=== PATIENT | male | born 1940 | race Caucasian/White ===

== ENCOUNTER 2016-06-26 17:52 | Emergency (ER) | payer OTHER ==
--- NOTE | 2016-06-26 20:23 | ED ORDER SUMMARY ---
..... Patient: ANTHONY IBARRA OrderSheet [facility] VisitID: [id number] [place] [address] 75y, M Registration Date/Time: 06/26/2016 ORDER SHEET Weight: 112.9 kg (stated) Allergies: No Known Drug Allergy GENERAL ORDERS: UA-Culture if indicated Urgent (18:08 06/26/2016 [facility] DO) (Ack 18:09 LNations ER Tech1) (18:35 EHassan R.N.) Amylase Urgent (18:08 06/[facility]/2016 [facility] (Ack 18:09 LNations ER Tech1) (18:35 EHassan R.N.) Lipase Urgent (18:06/26/2016 [facility]) (Ack 18:09 LNations ER Tech1) (18:35 EHassan R.N.) Cardiac Panel Stat (18:08 06/26/2016 [facility]) (Ack 18:10 LNations ER Tech1) (18:35 EHassan R.N.) BNP Urgent (18:08 06/26/2016 [facility]) (Ack 18:10 LNations ER Tech1) (18:35 EHassan R.N.) Urine Drug Screen Urgent (18:08 06/26/2016 [facility]) (Ack 18:10 LNations ER Tech1) (18:35 EHassan R.N.) NPO (18:08 06/26/2016 [facility] DO) (Ack 18:09 LNations ER Tech1) (18:35 EHassan R.N.) CT Abd/Pel w Cont (No) (N/A) (RLQ) Urgent (18:27 06/26/2016 [facility]) (Ack 18:30 LNations ER Tech1) (19:40 EHassan R.N.) MEDICATION ORDERS: IV FLUIDS: IV NS : initial bolus 250 mL (1000 mL/hr), then 250 mL/hr for X3 (NOW) (18:08 06/26/2016 [facility] DO) (18:39 EHassan R.N.) Zofran IV 4 mg (NOW) (18:08 06/26/2016 [facility] ) (18:39 EHassan R.N.) Dilaudid IV 0.5 mg (HIGH ALERT MEDICATION, NOW) (18:45 06/26/2016 [facility]) (18:47 EHassan R.N.) Dilaudid IV 0.5 mg (HIGH ALERT MEDICATION, NOW) (20:13 06/26/2016 [facility]) (20:16 EHassan R.N.) Zofran IV 4 mg (NOW) (20:13 06/26/2016 [facility]) (20:16 EHassan R.N.) ORDER SHEET NOTES: [Electronically signed by Emile Mathews R.N. (21:06 06/26/2016)] [Electronically signed by Yonatan Lazo DO (23:18 06/26/2016)] [Electronically locked/signed by Emile Mathews R.N. (21:06 06/26/2016)]
--- NOTE | 2016-06-26 20:23 | ED CLINICAL REPORT ---
Clinical Report - Physicians/Mid Levels [facility] [address] [place] [address] 06/26/2016 17:55 Patient: ANTHONY IBARRA Time Seen: 18:07. Arrived- By private vehicle. Historian- patient. HISTORY OF PRESENT ILLNESS Chief Complaint: ABDOMINAL PAIN. At its maximum, severity described as severe. When seen in the E.D., severity described as moderate. Modifying factors- worsened by movement. Relieved by rest. It is described as "pain". No radiation. It is described as located in the right pelvis and in the pelvic area. This started yesterday and is still present. It was gradual in onset and has been waxing/waning. The patient has had nausea. He has had vomiting. The vomiting has occurred several times. No blood-tinged emesis or frankly bloody emesis. No diarrhea. Similar symptoms previously: ( States he has had prior abdominal pain for years - unclear etiology). Recent medical care: The patient was seen recently in a clinic (yesterday). ( Pt states he was seen yesterday at [facility] for this pain and told to "get right into the ER" if his pain was worsening so he presented to the ED this evening). Seen for similar symptoms. REVIEW OF SYSTEMS No constipation, black stools, hematemesis, difficulty with urination or pain with urination. No urinary frequency, bloody stools, fever, headache or sore throat. No chest pain, difficulty breathing, cough or back pain. The patient has had skin rash consisting of "redness" (in the perineal area for quite some time). All systems otherwise negative, except as recorded above. PAST HISTORY Primary physician ([facility]). Problems: Contusion. Hypotension. Chest Pain. COPD - Chronic Obstructive Pulmonary Disease. Coronary Artery Disease. Myocardial Infarction. Hypertension. Surgeries: Neck Surgery. Medications: Albuterol Sulfate HFA Inhalation. ASA Oral 325 mg, daily. Allergies: No Known Drug Allergy. SOCIAL HISTORY Never smoker. No alcohol use or drug use. Is a local resident. ADDITIONAL NOTES The nursing notes have been reviewed. PHYSICAL EXAM Vital Signs: 06/26/2016 18:14 BP: 126/72. HR: 111. RR: 18. O2 saturation: 95%. Temp: 97.8 F. Pain level now: 12/04. Appearance: Alert. Oriented X3. Patient in mild distress. Eyes: Eyes normal inspection. No scleral icterus or pale conjunctivae. ENT: Pharynx normal. No pharyngeal erythema or tonsillar exudate. The mucous membranes are not dry. Neck: Normal inspection. Neck supple. CVS: Tachycardia. Heart sounds normal. Pulses normal. Respiratory: No respiratory distress. Breath sounds normal. Abdomen: Moderate tenderness in the right lower quadrant. No organomegaly. No mass. Obese. No rebound tenderness or guarding. Back: Normal inspection. No CVA tenderness. Skin: Skin warm and dry. Normal skin color. Normal skin turgor. Extremities: Extremities exhibit normal ROM. No lower extremity edema. Neuro: Oriented X 3. No motor deficit. LABS, X-RAYS, AND EKG Laboratory Tests: UA-Culture if indicated: (RICO: 06/26/2016 18:28) ( [facility] 06/26/2016 18:49) Final results Test Result Flag Units (Reference) URINE COLOR YELLOW URINE APPEARANCE CLEAR URINE GLUCOSE NEGATIVE (NEGATIVE) URINE BILIRUBIN NEGATIVE (NEGATIVE) URINE KETONE NEGATIVE (NEGATIVE) URINE SPECIFIC GRAVITY 1.015 (1.010-1.030) URINE PH 5.5 (5.0-8.0) URINE PROTEIN NEGATIVE (NEGATIVE) URINE UROBILINOGEN 1.0 EU/dL (0.2-1.0) URINE NITRITE NEGATIVE (NEGATIVE) URINE BLOOD NEGATIVE (NEGATIVE) URINE LEUK ESTERASE NEGATIVE (NEGATIVE) URINE RBC NONE SEEN rbc/hpf (0-1) URINE WBC RARE wbc/hpf (0-1) URINE EPITHELIAL CELLS 0-1 EPI/hpf (0-5) URINE BACTERIA NONE SEEN (NONE SEEN) URINE COMMENT CULT NOT INDICATED URINE CULTURES ARE SET-UP BASED ON THE FOLLOWING CRITERIA:POSITIVE NITRITEPOSITIVE LEUKOCYTE ESTERASEGREATER THAN 10 WHITE BLOOD CELLSMODERATE (2+) OR GREATER BACTERIA CBC w Diff: (RICO: 06/26/2016 18:40) ( [facility] 06/26/[facility] 18:54) Final results Test Result Flag Units (Reference) WHITE BLOOD COUNT 6.4 K/uL (4.5-11.5) RED BLOOD COUNT 4.77 M/uL (4.50-5.90) HEMOGLOBIN 14.2 gm/dL (13.5-17.5) HEMATOCRIT 42.6 % (41.0-53.0) MEAN CELL VOLUME 89 fL (80-100) MEAN CORPUSCULAR HGB 30 pg (26-34) MEAN CORPUSCULAR HGB CONC 33 g/dL (31-37) RED CELL DISTRIBUTION WIDTH 13.3 % (11.6-14.8) PLATELET COUNT 219 K/uL (150-400) NEUTROPHIL % 54.8 % (50-75) LYMPH % 34.7 % (25-40) MONO % 8.7 % (3-14) EOSINOPHIL % 1.2 % (0-4) BASOPHIL % 0.6 % (0-2) Urine Drug Screen: (RICO: 06/26/2016 18:28) ( [facility] 06/26/2016 18:52) Final results Test Result Flag Units (Reference) AMPHETAMINE/METHAMPHETAMINE NEGATIVE (NEGATIVE) BARBITURATE NEGATIVE (NEGATIVE) BENZODIAZEPINE NEGATIVE (NEGATIVE) CANNABINOID NEGATIVE (NEGATIVE) COCAINE NEGATIVE (NEGATIVE) ECSTASY NEGATIVE (NEGATIVE) METHADONE NEGATIVE (NEGATIVE) OPIATE NEGATIVE (NEGATIVE) The urine drug screen is a qualitative screening test fordrug overdose and abuse. All screen results should beconsidered as presumptive.Drugs screened for are as follows:BenzodiazepinesCocaineAmphetamines/MetamphetaminesTHC (Tetrahydrocannabinol)OpiatesBarbituratesEcstasyMethadonePositive results are unconfirmed. For confirmation, notifythe lab for the specimen to be sent to the reference lab.All confirmations must be performed by a differentmethodology.The ingestion of natural herbal and plant productscontaining Ephedra/Ephedra metabolites can produce in urineone or more substances capable of cross reacting withamphetamine/methamphetamine immunoassays. These testsprovide a preliminary result only. A more specificalternative chemical method must be used to obtain aconfirmed analytical result. BNP: (RICO: 06/26/2016 18:40) ( [facility] 06/26/2016 19:17) Final results Test Result Flag Units (Reference) B-TYPE NATRIURETIC PEPTIDE 90.4 pg/ml (5-100) Lipase: (RICO: 06/26/2016 18:40) ( [facility] 06/26/[place] 19:11) Final results Test Result Flag Units (Reference) LIPASE 134 U/L (73-393) AMYLASE 44 U/L (25-115) CHEM 13 PANEL: (RICO: 06/26/2016 18:40) ( [facility] 06/26/2016 19:21) Final results Test Result Flag Units (Reference) GLUCOSE 98 mg/dL (70-110) BUN 17 mg/dL (7-18) CREATININE 0.9 mg/dL (0.6-1.3) Estimated GFR >60 mL/min Estimated GFR- >60 mL/min Note: Persistent reduction over 3 months in eGFR<60 mL/min/1.73 m2 defines CKD. Patients with eGFR values>=60 mL/min/1.73 m2 may also have CKD if evidence ofpersistent proteinuria. Additional information may be foundat www.kidney.org. SODIUM 141 mmol/L (136-145) POTASSIUM 3.7 mmol/L (3.5-5.1) CHLORIDE 104 mmol/L (98-107) CARBON DIOXIDE 28 mmol/L (21-32) CALCIUM 8.4 L mg/dL (8.5-10.1) TOTAL PROTEIN 6.7 g/dL (6.4-8.2) ALBUMIN 3.1 L g/dL (3.3-5.0) BILIRUBIN, TOTAL 0.3 mg/dL (0.0-1.0) ALKALINE PHOSPHATASE 92 U/L (46-116) AST (SGOT) 17 U/L (15-37) ALT (SGPT) 16 U/L (12-78) MAGNESIUM 2.0 mg/dL (1.8-2.4) CPK 73 U/L (24-260) TROPONIN I <0.05 ng/mL (0.00-1.5) TROPONIN REFERENCE RANGE:<0.1 NEGATIVE0.1-1.5 INDETERMINANT>1.5 POSITIVE . Pulse Oximetry: 06/26/2016 18:14 O2 saturation: 95%. (FIO2 - room air). Interpretation: normal. PROGRESS AND PROCEDURES Course of Care: Normal Saline 1 liter IVPB given. Zofran 4 mg + 4 mg IVP given. Dilaudid 0.5 mg + 0.5 mg IVP given. Patient is stable. Physical exam findings are improved. Symptoms much better. Labs and CT essentially unremarkable. Further discussion with patient reveals that he has had similar pain for years - unclear etiology (?musculoskeletal). Patient/family counseled. Old ED records reviewed. Disposition: Discharged. Condition: stable and improved. CLINICAL IMPRESSION Acute abdominal pain of unknown cause. Tinea cruris Clinical picture does not suggest hepatitis, cholecystitis, appendicitis or bowel perforation or obstruction. Clinical picture does not suggest peritonitis, aortic aneurysm, mesenteric ischemia, pancreatitis or ureterolithiasis. Clinical picture does not suggest urinary tract infection. INSTRUCTIONS Rest. Do not work for three days. Drink plenty of fluids. Avoid alcohol. Avoid fatty, fried/greasy, lactose-containing (such as milk, cheese and ice cream), salty and spicy foods. No alcohol until released. Warnings: Further evaluation is necessary in order to recheck abnormal lab, obtain test results, conduct further tests and assess the possibility of serious illness. It is very important to follow up with a physician. GENERAL WARNINGS: Return or contact your physician immediately if your condition worsens or changes unexpectedly, if not improving as expected, or if other problems arise. Your Current Medications: CONTINUE TAKING THE FOLLOWING MEDICATIONS: Albuterol Sulfate HFA Inhalation. ASA Oral : 325 mg daily. Prescription Medications: Hydrocodone/APAP 5mg / 325mg: take 1 orally every 8 hours as needed for pain. Dispense ten (10). No refill. OTC Medications: Take acetaminophen (Tylenol, Datril, etc.) and ibuprofen (Advil, Nuprin, etc.) according to label instructions. Available over the counter. Clotrimazole 1% Cream (available over the counter): apply to affected area three times daily as needed for rash, until symptoms improve. Dispense sixty (60) grams. One refill. Follow-up with: [facility], , , [address], , [place], [address] Follow up tomorrow. (Electronically signed by Yonatan Lazo DO 06/26/2016 23:18)
--- NOTE | 2016-06-26 20:23 | ED CLINICAL REPORT ---
Clinical Report - Physicians/Mid Levels [facility] [address] [place] [address] 06/26/2016 17:55 Patient: ANTHONY IBARRA Time Seen: 18:07. Arrived- By private vehicle. Historian- patient. HISTORY OF PRESENT ILLNESS Chief Complaint: ABDOMINAL PAIN. At its maximum, severity described as severe. When seen in the E.D., severity described as moderate. Modifying factors- worsened by movement. Relieved by rest. It is described as "pain". No radiation. It is described as located in the right pelvis and in the pelvic area. This started yesterday and is still present. It was gradual in onset and has been waxing/waning. The patient has had nausea. He has had vomiting. The vomiting has occurred several times. No blood-tinged emesis or frankly bloody emesis. No diarrhea. Similar symptoms previously: ( States he has had prior abdominal pain for years - unclear etiology). Recent medical care: The patient was seen recently in a clinic (yesterday). ( Pt states he was seen yesterday at [facility] for this pain and told to "get right into the ER" if his pain was worsening so he presented to the ED this evening). Seen for similar symptoms. REVIEW OF SYSTEMS No constipation, black stools, hematemesis, difficulty with urination or pain with urination. No urinary frequency, bloody stools, fever, headache or sore throat. No chest pain, difficulty breathing, cough or back pain. The patient has had skin rash consisting of "redness" (in the perineal area for quite some time). All systems otherwise negative, except as recorded above. PAST HISTORY Primary physician ([facility]). Problems: Contusion. Hypotension. Chest Pain. COPD - Chronic Obstructive Pulmonary Disease. Coronary Artery Disease. Myocardial Infarction. Hypertension. Surgeries: Neck Surgery. Medications: Albuterol Sulfate HFA Inhalation. ASA Oral 325 mg, daily. Allergies: No Known Drug Allergy. SOCIAL HISTORY Never smoker. No alcohol use or drug use. Is a local resident. ADDITIONAL NOTES The nursing notes have been reviewed. PHYSICAL EXAM Vital Signs: 06/26/2016 18:14 BP: 126/72. HR: 111. RR: 18. O2 saturation: 95%. Temp: 97.8 F. Pain level now: 12/04. Appearance: Alert. Oriented X3. Patient in mild distress. Eyes: Eyes normal inspection. No scleral icterus or pale conjunctivae. ENT: Pharynx normal. No pharyngeal erythema or tonsillar exudate. The mucous membranes are not dry. Neck: Normal inspection. Neck supple. CVS: Tachycardia. Heart sounds normal. Pulses normal. Respiratory: No respiratory distress. Breath sounds normal. Abdomen: Moderate tenderness in the right lower quadrant. No organomegaly. No mass. Obese. No rebound tenderness or guarding. Back: Normal inspection. No CVA tenderness. Skin: Skin warm and dry. Normal skin color. Normal skin turgor. Extremities: Extremities exhibit normal ROM. No lower extremity edema. Neuro: Oriented X 3. No motor deficit. LABS, X-RAYS, AND EKG Laboratory Tests: UA-Culture if indicated: (RICO: 06/26/2016 18:28) ( [facility] 06/[place] 18:49) Final results Test Result Flag Units (Reference) URINE COLOR YELLOW URINE APPEARANCE CLEAR URINE GLUCOSE NEGATIVE (NEGATIVE) URINE BILIRUBIN NEGATIVE (NEGATIVE) URINE KETONE NEGATIVE (NEGATIVE) URINE SPECIFIC GRAVITY 1.015 (1.010-1.030) URINE PH 5.5 (5.0-8.0) URINE PROTEIN NEGATIVE (NEGATIVE) URINE UROBILINOGEN 1.0 EU/dL (0.2-1.0) URINE NITRITE NEGATIVE (NEGATIVE) URINE BLOOD NEGATIVE (NEGATIVE) URINE LEUK ESTERASE NEGATIVE (NEGATIVE) URINE RBC NONE SEEN rbc/hpf (0-1) URINE WBC RARE wbc/hpf (0-1) URINE EPITHELIAL CELLS 0-1 EPI/hpf (0-5) URINE BACTERIA NONE SEEN (NONE SEEN) URINE COMMENT CULT NOT INDICATED URINE CULTURES ARE SET-UP BASED ON THE FOLLOWING CRITERIA:POSITIVE NITRITEPOSITIVE LEUKOCYTE ESTERASEGREATER THAN 10 WHITE BLOOD CELLSMODERATE (2+) OR GREATER BACTERIA CBC w Diff: (RICO: 06/26/2016 18:40) ( [facility] 06/[facility] 18:54) Final results Test Result Flag Units (Reference) WHITE BLOOD COUNT 6.4 K/uL (4.5-11.5) RED BLOOD COUNT 4.77 M/uL (4.50-5.90) HEMOGLOBIN 14.2 gm/dL (13.5-17.5) HEMATOCRIT 42.6 % (41.0-53.0) MEAN CELL VOLUME 89 fL (80-100) MEAN CORPUSCULAR HGB 30 pg (26-34) MEAN CORPUSCULAR HGB CONC 33 g/dL (31-37) RED CELL DISTRIBUTION WIDTH 13.3 % (11.6-14.8) PLATELET COUNT 219 K/uL (150-400) NEUTROPHIL % 54.8 % (50-75) LYMPH % 34.7 % (25-40) MONO % 8.7 % (3-14) EOSINOPHIL % 1.2 % (0-4) BASOPHIL % 0.6 % (0-2) Urine Drug Screen: (RICO: 06/26/2016 18:28) ( [facility] 06/26/2016 18:52) Final results Test Result Flag Units (Reference) AMPHETAMINE/METHAMPHETAMINE NEGATIVE (NEGATIVE) BARBITURATE NEGATIVE (NEGATIVE) BENZODIAZEPINE NEGATIVE (NEGATIVE) CANNABINOID NEGATIVE (NEGATIVE) COCAINE NEGATIVE (NEGATIVE) ECSTASY NEGATIVE (NEGATIVE) METHADONE NEGATIVE (NEGATIVE) OPIATE NEGATIVE (NEGATIVE) The urine drug screen is a qualitative screening test fordrug overdose and abuse. All screen results should beconsidered as presumptive.Drugs screened for are as follows:BenzodiazepinesCocaineAmphetamines/MetamphetaminesTHC (Tetrahydrocannabinol)OpiatesBarbituratesEcstasyMethadonePositive results are unconfirmed. For confirmation, notifythe lab for the specimen to be sent to the reference lab.All confirmations must be performed by a differentmethodology.The ingestion of natural herbal and plant productscontaining Ephedra/Ephedra metabolites can produce in urineone or more substances capable of cross reacting withamphetamine/methamphetamine immunoassays. These testsprovide a preliminary result only. A more specificalternative chemical method must be used to obtain aconfirmed analytical result. BNP: (RICO: 06/26/2016 18:40) ( [facility] 06/26/2016 19:17) Final results Test Result Flag Units (Reference) B-TYPE NATRIURETIC PEPTIDE 90.4 pg/ml (5-100) Lipase: (RICO: 06/26/2016 18:40) ( [facility] 06/26/[place] 19:11) Final results Test Result Flag Units (Reference) LIPASE 134 U/L (73-393) AMYLASE 44 U/L (25-115) CHEM 13 PANEL: (RICO: 06/26/2016 18:40) ( [facility] 06/26/2016 19:21) Final results Test Result Flag Units (Reference) GLUCOSE 98 mg/dL (70-110) BUN 17 mg/dL (7-18) CREATININE 0.9 mg/dL (0.6-1.3) Estimated GFR >60 mL/min Estimated GFR- >60 mL/min Note: Persistent reduction over 3 months in eGFR<60 mL/min/1.73 m2 defines CKD. Patients with eGFR values>=60 mL/min/1.73 m2 may also have CKD if evidence ofpersistent proteinuria. Additional information may be foundat www.kidney.org. SODIUM 141 mmol/L (136-145) POTASSIUM 3.7 mmol/L (3.5-5.1) CHLORIDE 104 mmol/L (98-107) CARBON DIOXIDE 28 mmol/L (21-32) CALCIUM 8.4 L mg/dL (8.5-10.1) TOTAL PROTEIN 6.7 g/dL (6.4-8.2) ALBUMIN 3.1 L g/dL (3.3-5.0) BILIRUBIN, TOTAL 0.3 mg/dL (0.0-1.0) ALKALINE PHOSPHATASE 92 U/L (46-116) AST (SGOT) 17 U/L (15-37) ALT (SGPT) 16 U/L (12-78) MAGNESIUM 2.0 mg/dL (1.8-2.4) CPK 73 U/L (24-260) TROPONIN I <0.05 ng/mL (0.00-1.5) TROPONIN REFERENCE RANGE:<0.1 NEGATIVE0.1-1.5 INDETERMINANT>1.5 POSITIVE . Pulse Oximetry: 06/26/2016 18:14 O2 saturation: 95%. (FIO2 - room air). Interpretation: normal. PROGRESS AND PROCEDURES Course of Care: Normal Saline 1 liter IVPB given. Zofran 4 mg + 4 mg IVP given. Dilaudid 0.5 mg + 0.5 mg IVP given. Patient is stable. Physical exam findings are improved. Symptoms much better. Labs and CT essentially unremarkable. Further discussion with patient reveals that he has had similar pain for years - unclear etiology (?musculoskeletal). Patient/family counseled. Old ED records reviewed. Disposition: Discharged. Condition: stable and improved. CLINICAL IMPRESSION Acute abdominal pain of unknown cause. Tinea cruris Clinical picture does not suggest hepatitis, cholecystitis, appendicitis or bowel perforation or obstruction. Clinical picture does not suggest peritonitis, aortic aneurysm, mesenteric ischemia, pancreatitis or ureterolithiasis. Clinical picture does not suggest urinary tract infection. INSTRUCTIONS Rest. Do not work for three days. Drink plenty of fluids. Avoid alcohol. Avoid fatty, fried/greasy, lactose-containing (such as milk, cheese and ice cream), salty and spicy foods. No alcohol until released. Warnings: Further evaluation is necessary in order to recheck abnormal lab, obtain test results, conduct further tests and assess the possibility of serious illness. It is very important to follow up with a physician. GENERAL WARNINGS: Return or contact your physician immediately if your condition worsens or changes unexpectedly, if not improving as expected, or if other problems arise. Your Current Medications: CONTINUE TAKING THE FOLLOWING MEDICATIONS: Albuterol Sulfate HFA Inhalation. ASA Oral : 325 mg daily. Prescription Medications: Hydrocodone/APAP 5mg / 325mg: take 1 orally every 8 hours as needed for pain. Dispense ten (10). No refill. OTC Medications: Take acetaminophen (Tylenol, Datril, etc.) and ibuprofen (Advil, Nuprin, etc.) according to label instructions. Available over the counter. Clotrimazole 1% Cream (available over the counter): apply to affected area three times daily as needed for rash, until symptoms improve. Dispense sixty (60) grams. One refill. Follow-up with: [facility], , , [address], , [place], [address] Follow up tomorrow. (Electronically signed by Yonatan Lazo DO 06/26/2016 23:18)
--- NOTE | 2016-06-26 20:23 | ED ORDER SUMMARY ---
..... Patient: ANTHONY IBARRA OrderSheet [facility] VisitID: [id number] [place] [address] 75y, M Registration Date/Time: 06/26/2016 ORDER SHEET Weight: 112.9 kg (stated) Allergies: No Known Drug Allergy GENERAL ORDERS: UA-Culture if indicated Urgent (18:08 06/26/2016 [facility] DO) (Ack 18:09 LNations ER Tech1) (18:35 EHassan R.N.) Amylase Urgent (18:08 [facility] (Ack 18:09 LNations ER Tech1) (18:35 EHassan R.N.) Lipase Urgent (18:06/26/2016 [facility]) (Ack 18:09 LNations ER Tech1) (18:35 EHassan R.N.) Cardiac Panel Stat (18:08 06/26/2016 [facility]) (Ack 18:10 LNations ER Tech1) (18:35 EHassan R.N.) BNP Urgent (18:08 06/26/2016 [facility]) (Ack 18:10 LNations ER Tech1) (18:35 EHassan R.N.) Urine Drug Screen Urgent (18:08 06/26/2016 [facility]) (Ack 18:10 LNations ER Tech1) (18:35 EHassan R.N.) NPO (18:08 06/26/2016 [facility] DO) (Ack 18:09 LNations ER Tech1) (18:35 EHassan R.N.) CT Abd/Pel w Cont (No) (N/A) (RLQ) Urgent (18:27 06/26/2016 [facility]) (Ack 18:30 LNations ER Tech1) (19:40 EHassan R.N.) MEDICATION ORDERS: IV FLUIDS: IV NS : initial bolus 250 mL (1000 mL/hr), then 250 mL/hr for X3 (NOW) (18:08 06/26/2016 [facility] DO) (18:39 EHassan R.N.) Zofran IV 4 mg (NOW) (18:08 [facility]/2016 [facility] (18:39 EHassan R.N.) Dilaudid IV 0.5 mg (HIGH ALERT MEDICATION, NOW) (18:45 06/26/2016 [facility]) (18:47 EHassan R.N.) Dilaudid IV 0.5 mg (HIGH ALERT MEDICATION, NOW) (20:13 06/26/2016 [facility]) (20:16 EHassan R.N.) Zofran IV 4 mg (NOW) (20:13 06/26/2016 [facility]) (20:16 EHassan R.N.) ORDER SHEET NOTES: [Electronically signed by Emile Mathews R.N. (21:06 06/26/2016)] [Electronically signed by Yonatan Lazo DO (23:18 06/26/2016)] [Electronically locked/signed by Emile Mathews R.N. (21:06 06/26/2016)]
--- NOTE | 2016-06-26 20:23 | ED NURSING NOTES ---
Clinical Report - Nurses [facility] [address] [place] [address] 06/26/2016 17:55 Patient: ANTHONY IBARRA TRIAGE Triage time 1812 PM. Acuity: LEVEL 3. Chief Complaint: ABDOMINAL PAIN, NAUSEA and VOMITING. Alert. No acute distress. SEPSIS SCREEN: Sepsis Screen. Negative (no infection suspected/documented). WENDY COMA SCORE: Wendy Coma Scale: 15- eyes open spontaneously (4); best verbal response- oriented x 4 (5); best motor response- obeys commands (6). --18:20 Trisha Londono R.N. 18:14 06/26/16. BP: 126/72 (regular adult cuff) taken on the left arm, via an automated monitor, while lying. HR: 111. RR: 18. O2 saturation: 95% on room air. Temp: 97.8 F (oral). Pain level now: 12/04. --18:20 Trisha Londono R.N. Weight: 112.9 kg stated. Height/Length: 70 inches Per Patient. BMI: 35.7. --18:15 Trisha Londono R.N. Medications Albuterol Sulfate HFA Inhalation. ASA Oral 325 mg, daily. --18:19 Trisha Londono R.N. Allergies No Known Drug Allergy. --18:19 Trisha Londono R.N. Medication/allergy information source: the patient. --18:20 Trisha Londono R.N. History Arrived by private vehicle. Historian: patient and family. Accompanied by family. Primary physician (JAKE Henderson). ( Pt states having abdominal pain left quadrant since yesterday, with vomiting, chills possible fevers, denies diarrhea or constipation. Pt's family state being at the walk in clinic next door and was told if pain increased to come to ED.). This started yesterday. He has had fever, nausea, vomiting and abdominal pain. No diarrhea or constipation. Last oral intake by patient was snack this afternoon. 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 Took aspirin. PAST MEDICAL HX: Immunizations: up-to-date. 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 No alcohol use or drug use. No recent travel. No infectious disease exposure. No known contact with a sick individual. ABUSE ASSESSMENT: No report of abuse. SELF HARM ASSESSMENT: A self harm assessment was performed. The patient answered "no" to the question "Do you have thoughts of harming or killing yourself?" and "Have you recently had thoughts about harming or killing others?". FALL RISK ASSESSMENT: Fall risk assessment completed. No fall risk identified. NUTRITIONAL RISK ASSESSMENT: The nutritional risk assessment revealed no deficiencies. FUNCTIONAL ASSESSMENT: Functional assessment: no impairments noted. LEARNING NEEDS ASSESSMENT: The learning needs assessment revealed no barriers. SKIN INTEGRITY ASSESSMENT: Skin integrity risk assessment completed. No skin integrity risk identified. --18:20 Trisha Londono R.N. PROBLEMS: Emphysema. Asthma. Pneumonia. Fall. Contusion. Hypotension. Chest Pain. COPD - Chronic Obstructive Pulmonary Disease. Coronary Artery Disease. Myocardial Infarction. Hypertension. --18:19 Trisha Londono R.N. ADDITIONAL SURGERIES: Neck Surgery. --18:19 Trisha Londono R.N. Interventions ID band on patient. --18:20 Trisha Londono R.N. PHYSICAL ASSESSMENT To room via wheelchair. GENERAL / NEURO / PSYCH: Alert. Oriented X 4. Appears in pain. HEENT: Mucous membranes are pink. RESPIRATORY: Breath sounds within normal limits. CVS: Capillary refill less than 2 seconds. GI / : The patient has had nausea. Abdominal tenderness. Rebound tenderness. Guarding present. Bowel sounds within normal limits. ( noted to have a rash, presently on nyastatin powder). SKIN: Skin is warm and dry. --18:21 Trisha Londono R.N. NURSING PROGRESS NOTES The initial plan of care for this patient has been created This plan of care was discussed with the patient. Patient gowned. Warming measures: blanket applied. Reassurance given. Two patient identifiers checked. Call light placed in reach. Side rails up x 1. Bed placed in lowest position. Brakes of bed on. --18:21 Trisha Londono R.N. 18:39 06/26/2016 Site #1 started via IV in the right forearm with an 20g angiocath; one attempt. Blood drawn: rainbow set. Labeled in the presence of the patient and sent to the lab. --18:39 Trisha Londono R.N. 18:39 06/26/2016 Zofran (Ondansetron HCl) IVP 4 mg given over 2 minute(s) via site #1. Allergies verified and confirmed 5 rights. IV patency established. IV site checked: no pain, redness, or swelling. IV flushed thoroughly pre- and post-medication administration. IVP given by RN. --18:39 Trisha Londono R.N. 18:39 06/26/2016 Started bag #1 250 mL IV Fluids IV NS (Saline); at 250 mL/hr over 30 minute(s) via site #1 via IV pump. Allergies verified and confirmed 5 rights. IV patency established. IV site checked: no pain, redness, or swelling. IV flushed thoroughly pre- and post-medication administration. Completed per protocol. --18:39 Trisha Londono R.N. monitoring analyst, pulse oximeter and NIBP monitor placed on patient. Reassurance given. Patient identifiers checked. Call light placed in reach. Side rails up. --18:43 Trisha Londono R.N. 18:41 06/26/16. BP: 101/66 (regular adult cuff) taken on the left arm, via an automated monitor, while lying. HR: 95. RR: 16. O2 saturation: 94% on room air. Pain level now: 9/10. --18:43 Trisha Londono R.N. 18:47 06/26/2016 Dilaudid (HYDROmorphone HCl PF) IVP 0.5 mg given over 30 second(s) via site #1. Allergies verified, confirmed 5 rights and sedative warning given to the patient and patient's family. IV patency established. IV site checked: no pain, redness, or swelling. IV flushed thoroughly pre- and post-medication administration. IVP given by RN. --18:47 Trisha Londono R.N. Patient returned from CT. (1940 PM). --19:40 Trisha Londono R.N. 19:00 06/26/16. BP: 115/74 (regular adult cuff) taken on the left arm, via an automated monitor, while lying. HR: 67. RR: 15. O2 saturation: 96%. Pain level now: 12/04. --19:43 Trisha Londono R.N. Reassurance given. The patient is resting quietly and has had no adverse reaction. Overall patient status is the same- he states feels the same. GI / : The patient reports nausea. The patient reports abdominal pain. Denies vomiting. SKIN: Skin is warm. Call light placed in reach. Side rails up. --19:43 Trisha Londono R.N. 20:16 06/26/2016 Dilaudid (HYDROmorphone HCl PF) IVP 0.5 mg given over 30 second(s) via site #1. Allergies verified, confirmed 5 rights and sedative warning given to the patient and patient's family. IV patency established. IV site checked: no pain, redness, or swelling. IV flushed thoroughly pre- and post-medication administration. IVP given by RN. --20:16 Trisha Londono R.N. 20:16 06/26/2016 Zofran (Ondansetron HCl) IVP 4 mg given over 2 minute(s) via site #1. Allergies verified and confirmed 5 rights. IV patency established. IV site checked: no pain, redness, or swelling. IV flushed thoroughly pre- and post-medication administration. IVP given by RN. --20:16 Trisha Londono R.N. 21:00 Assisted pt get into paper scrubs. The patient is calm and resting quietly. Overall patient status- he states feels better. SKIN: Skin is warm and dry. Skin color within normal limits. --21:05 Emile Mathews R.N. DISPOSITION / DISCHARGE 20:53 06/26/2016 IV Fluids IV NS Discontinued: bag #1 STOPPED upon discharge. Total amount infused: 625 mL. IV patency established. IV site checked: no pain, redness, or swelling. IV flushed thoroughly. --20:53 Emile Mathews R.N. 20:55 06/26/2016 Site #1 removed upon discharge. Catheter intact. Bandage applied. --21:04 Emile Mathews R.N. Departure time: 21:03. Condition at departure: stable. No learning barriers present. Discharge instructions provided and reviewed with the patient. Reviewed medication(s) side effects, precautions, dosing and course information. Prescription(s) given to the patient. Patient verbalized understanding. Written instructions provided in Salvadorean. The patient was discharged home and accompanied by spouse and manager of financial planning. He left the Emergency Department ambulatory and via private vehicle. Spouse driving. FALL RISK ASSESSMENT: Fall risk assessment completed. No fall risk identified. --21:05 Emile Mathews R.N. 20:51 06/26/16. BP: 116/63. HR: 67. RR: 17. O2 saturation: 95% on room air. Pain level now: 09/03. --21:05 Emile Mathews R.N. Locked/Released at 06/26/2016 21:06 by Emile Mathews R.N.
--- NOTE | 2016-06-26 20:50 | DIAGNOSTIC IMAGING REPORT ---
PROCEDURE: CT ABD/PELVIS WITH CONTRAST CLINICAL INDICATION: Abdominal pain and vomiting x 2 days. TECHNIQUE: 125 ml of Isovue 300 were injected intravenously and axial images were obtained of the entire abdomen and pelvis with sagittal and coronal reformations. COMPARISON: None. FINDINGS: ABDOMEN: Mild bibasilar scarring. Mild cardiomegaly. Vague density in the dependent portion of the gallbladder, possibly a gallstone. No evidence of biliary obstruction or inflammatory changes. Liver, pancreas, spleen, adrenal glands and left kidney are normal. Small right renal cyst. Mild bilateral renal cortical atrophy. Mild atherosclerosis of the aorta. Nonspecific bowel gas pattern. PELVIS: Normal appendix. Mildly enlarged prostate, 4.6 cm. No pelvic mass, inflammatory changes or free fluid. Small sclerotic lesion of the left femoral neck, likely a bone island. Moderate degenerative changes of the spine. IMPRESSION: 1. Questionable gallstone. Consider ultrasound if clinically warranted 2. Mildly enlarged prostate 3. Results discussed with Dr. Lazo All CT scans at this facility use dose modulation, iterative reconstruction, and/or weight-based dosing when appropriate to reduce radiation dose to as low as reasonably achievable.
--- NOTE | 2016-06-26 23:18 | ED MAR SUMMARY ---
..... Medication Administration Record [facility] [address] [place] [address] Patient: ANTHONY IBARRA Visit ID: [id number] 75y, M Weight: 112.9 kg Height/Length: 70 in BMI: 35.7 ALLERGIES: No Known Drug Allergy Start 18:39 06/26/2016 Trisha Londono R.N., Stop 20:53 06/26/2016 Emile Mathews R.N. Medication Administered: IV NS (SALINE), Dose: IV Fluids over 30 minute(s), Rate: 250 mL/hr, Dispensed: 250 mL bag, Site: #1 right forearm. Medication Ordered: IV NS : initial bolus 250 mL (1000 mL/hr), then 250 mL/hr for X3 (NOW). Given 18:39 06/26/2016 Trisha Londono R.N. Medication Administered: ZOFRAN [IVP] (ONDANSETRON HCL), Dose: 4 mg IVP over 2 minute(s), Site: #1 right forearm. Medication Ordered: Zofran IV 4 mg (NOW). Given 18:47 06/26/2016 Trisha Londono R.N. Medication Administered: DILAUDID [IVP] (HYDROMORPHONE HCL PF), Dose: 0.5 mg IVP over 30 second(s), Site: #1 right forearm. Medication Ordered: Dilaudid IV 0.5 mg (HIGH ALERT MEDICATION, NOW). Given 20:16 06/26/2016 Trisha Londono R.N. Medication Administered: DILAUDID [IVP] (HYDROMORPHONE HCL PF), Dose: 0.5 mg IVP over 30 second(s), Site: #1 right forearm. Medication Ordered: Dilaudid IV 0.5 mg (HIGH ALERT MEDICATION, NOW). Given 20:16 06/26/2016 Trisha Londono R.N. Medication Administered: ZOFRAN [IVP] (ONDANSETRON HCL), Dose: 4 mg IVP over 2 minute(s), Site: #1 right forearm. Medication Ordered: Zofran IV 4 mg (NOW).
--- NOTE | 2016-06-26 23:18 | ED MAR SUMMARY ---
..... Medication Administration Record [facility] [address] [place] [address] Patient: ANTHONY IBARRA Visit ID: [id number] 75y, M Weight: 112.9 kg Height/Length: 70 in BMI: 35.7 ALLERGIES: No Known Drug Allergy Start 18:39 06/26/2016 Trisha Londono R.N., Stop 20:53 06/26/2016 Emile Mathews R.N. Medication Administered: IV NS (SALINE), Dose: IV Fluids over 30 minute(s), Rate: 250 mL/hr, Dispensed: 250 mL bag, Site: #1 right forearm. Medication Ordered: IV NS : initial bolus 250 mL (1000 mL/hr), then 250 mL/hr for X3 (NOW). Given 18:39 06/26/2016 Trisha Londono R.N. Medication Administered: ZOFRAN [IVP] (ONDANSETRON HCL), Dose: 4 mg IVP over 2 minute(s), Site: #1 right forearm. Medication Ordered: Zofran IV 4 mg (NOW). Given 18:47 06/26/2016 Trisha Londono R.N. Medication Administered: DILAUDID [IVP] (HYDROMORPHONE HCL PF), Dose: 0.5 mg IVP over 30 second(s), Site: #1 right forearm. Medication Ordered: Dilaudid IV 0.5 mg (HIGH ALERT MEDICATION, NOW). Given 20:16 06/26/2016 Trisha Londono R.N. Medication Administered: DILAUDID [IVP] (HYDROMORPHONE HCL PF), Dose: 0.5 mg IVP over 30 second(s), Site: #1 right forearm. Medication Ordered: Dilaudid IV 0.5 mg (HIGH ALERT MEDICATION, NOW). Given 20:16 06/26/2016 Trisha Londono R.N. Medication Administered: ZOFRAN [IVP] (ONDANSETRON HCL), Dose: 4 mg IVP over 2 minute(s), Site: #1 right forearm. Medication Ordered: Zofran IV 4 mg (NOW).
--- NOTE | 2016-06-26 23:18 | ED DISCHARGE INSTRUCTIONS ---
Patient: ANTHONY IBARRA General Instructions [facility] VisitID: [id number] [address] [place] [address] 75y, M Registration Date/Time: 06/26/2016 Acute abdominal pain of unknown cause. Tinea cruris INSTRUCTIONS Rest. Do not work for three days. Drink plenty of fluids. Avoid alcohol. Avoid fatty, fried/greasy, lactose-containing (such as milk, cheese and ice cream), salty and spicy foods. No alcohol until released. Warnings: Further evaluation is necessary in order to recheck abnormal lab, obtain test results, conduct further tests and assess the possibility of serious illness. It is very important to follow up with a physician. GENERAL WARNINGS: Return or contact your physician immediately if your condition worsens or changes unexpectedly, if not improving as expected, or if other problems arise. Your Current Medications: CONTINUE TAKING THE FOLLOWING MEDICATIONS: Albuterol Sulfate HFA Inhalation. ASA Oral : 325 mg daily. Prescription Medications: Hydrocodone/APAP 5mg / 325mg: take 1 orally every 8 hours as needed for pain. Dispense ten (10). No refill. OTC Medications: Take acetaminophen (Tylenol, Datril, etc.) and ibuprofen (Advil, Nuprin, etc.) according to label instructions. Available over the counter. Clotrimazole 1% Cream (available over the counter): apply to affected area three times daily as needed for rash, until symptoms improve. Dispense sixty (60) grams. One refill. Follow-up with: [facility], , , [address], , [place], [id number] Follow up tomorrow. ADDITIONAL INFORMATION Abdominal Pain,Uncertain Cause [Male] Based on your visit today, the exact cause of your abdominalpain is not clear. Your exam and tests do not indicate a dangerous cause at this time. However, the signs of a serious problem may take more time to appear. Although your evaluation was reassuring today, sometimes early in the course of many conditions, exam and lab tests can appear normal. Therefore, it is important for you to watch for any new symptoms or worsening of your condition. Causes It may not be obvious what caused your symptoms. Pay attention to things that do seem to make your symptoms worse or better and discuss this with your doctor when you follow up. Diagnosis The evaluation of abdominal pain in the emergency department may onlyrequire an exam by the doctor or it may include blood, urine or imaging studies, depending on many factors. Sometimes exams and tests can identify a cause but in many cases, a clear cause is not found. Further testing at follow up visits may help to suggest a clear diagnosis. Home Care Rest as much as possible until your next exam. Try to avoid any medications (unless otherwise directed by your doctor), foods, activities, or other factors that you may have contributed to your symptoms. Try to eat foods that you know that you have tolerated well in the past. Certain diets may be recommended for some conditions that cause abdominal pain. However, since the cause of your symptoms may not be clear, discuss your diet more with your primary care provider or specialist for further recommendations. Eating several small meals per day as opposed to 2 or 3 larger meals may help. Monitor closely for anything that may make your symptoms worse or better. Pay close attention to symptoms below that may indicate worsening of your condition. Follow Up and Precautions See your doctoras instructed or sooneror if your symptoms are not improving.In some cases, you may need more testing. When to Seek Medical Attention Contact your doctor or see medical attention ifany of the following occur: Pain is becoming worse You are unable to take your medications due to excessive vomiting Swelling of the abdomen Fever of 100.4F (38C) or higher, or as directed by your health care provider Blood in vomit or bowel movements (dark red or black color) Jaundice (yellow color of eyes and skin) New onset of weakness, dizziness or fainting New onset of chest, arm, back, neck or jaw pain Tinea Cruris(General) Tinea crurisis a red, itchy rash caused by a fungal infection. It occurs in skin folds where it is warm and moist. This is often the groin area (jock itch) or under the breasts. It often starts as a small patch that grows larger. This infection is treated with skin creams or oral medication. Home Care: If you were prescribed a cream, it should be applied exactly as directed. Some antifungal creams are available without a prescription (Lotrimin, Tinactin). It may take a week before the fungus starts to go away and it can take about2 to3 weeks to completely clear. To prevent recurrence, it is important to continue the medicine until the rash is all gone. Wash the area at least once a day with soap and water. Pat dry and apply medicine. If the rash is in the groin, change underwear daily. If the rash is under your breast, wear a bra to prevent [id number] contact between the breast and the skin of the chest. Once the rash is gone, keep the area clean and dry to prevent reinfection. If recurrence is a problem, use a medicated antifungal powder daily (such as Zeasorb-AF, available [id number]). Follow Up With Your Doctor As Advised By Our Staff If The Rash Is Not Starting To Improve After10 Days Of Treatment Or If The Rash Continues To Spread. Get Prompt Medical Attention If Any Of The Following Occur: Increasing pain in the area of the rash Redness that spreads around the rash Fluid draining from the rash Fever of 100.4F (38C) or higher, or as directed by your healthcare provider [place] Diet A bland diet is used for patients with an upset stomach. It consists of foods that are mild and easy to digest. It is better to eat small frequent meals rather than three large meals a day. BEVERAGES OK: Fruit juices, non-caffeinated teas and coffee, non-carbonated steiner AVOID: Carbonated beverage, caffeinated tea and coffee, all alcoholic beverages BREAD OK: Refined white, wheat or rye bread, ruben or soda crackers, [place] toast, plain rolls, bagels AVOID: Whole-grain bread CEREAL OK: Refined cereals: cooked or ready to eat AVOID: Whole grain cereals and granola, or those containing bran, seeds or nuts DESSERTS OK: Peanut butter and all others except those to "avoid" AVOID: Chocolate, cocoa, coconut, popcorn, nuts, seeds, jam, marmalade FRUITS OK: Canned, cooked, frozen or fresh fruits without seeds or tough skin AVOID: Olives, skin and seeds of fruit MEATS OK: All fresh or preserved meat, fish and fowl AVOID: Any that are prepared with those spices to "avoid" CHEESE & EGGS OK: Eggs, cottage cheese, cream cheese, other cheeses AVOID: All cheeses made with those spices to "avoid" POTATOES & PASTA OK: Potato, rice, macaroni, noodles, spaghetti AVOID: None SOUPS OK: All soups without heavy seasoning AVOID: Soups made with those spices to "avoid" VEGETABLES OK: Canned, cooked, fresh or frozen mildly flavored vegetables without seeds, skins or coarse fiber AVOID: Vegetables prepared with those spices to "avoid"; skin and seeds of vegetables and those with coarse fiber SPICES OK: Salt, lemon and [place] juice, vinegar, all extracts, tamia, cinnamon, thyme, mace, allspice, paprika AVOID: [place] powder, cloves, pepper, seed spices, garlic, gravy pickles, highly seasoned salad dressings Hydrocodone Bitartrate, Acetaminophen Oral tablet What is this medicine? ACETAMINOPHEN; HYDROCODONE (a set a JAS nancy fen; jaqueline droe KOE done) is a pain reliever. It is used to treat mild to moderate pain. How should I use this medicine? Take this medicine by mouth. Swallow it with a full glass of water. Follow the directions on the prescription label. If the medicine upsets your stomach, take the medicine with food or milk. Do not take more than you are told to take. Talk to your leather flesher regarding the use of this medicine in children. This medicine is not approved for use in children. What side effects may I notice from receiving this medicine? Side effects that you should report to your doctor or health day care home provider as soon as possible: allergic reactions like skin rash, itching or hives, swelling of the face, lips, or tongue breathing problems confusion feeling faint or lightheaded, falls stomach pain yellowing of the eyes or skin Side effects that usually do not require medical attention (report to your doctor or health day care home provider if they continue or are bothersome): nausea, vomiting stomach upset What may interact with this medicine? alcohol antihistamines isoniazid medicines for depression, anxiety, or psychotic disturbances medicines for sleep muscle relaxants naltrexone narcotic medicines (opiates) for pain phenobarbital ritonavir tramadol What if I miss a dose? If you miss a dose, take it as soon as you can. If it is almost time for your next dose, take only that dose. Do not take double or extra doses. Where should I keep my medicine? Keep out of the reach of children. This medicine can be abused. Keep your medicine in a safe place to protect it from theft. Do not share this medicine with anyone. Selling or giving away this medicine is dangerous and against the law. Store at room temperature between 15 and 30 degrees C (59 and 86 degrees F). Protect from light. Keep container tightly closed. Throw away any unused medicine after the expiration date. Discard unused medicine and used packaging carefully. Pets and children can be harmed if they find used or lost packages. What should I tell my health care provider before I take this medicine? They need to know if you have any of these conditions: brain tumor Crohn's disease, inflammatory bowel disease, or ulcerative colitis drink more than 3 alcohol-containing drinks per day drug abuse or addiction head injury heart or circulation problems kidney disease or problems going to the bathroom liver disease lung disease, asthma, or breathing problems an unusual or allergic reaction to acetaminophen, hydrocodone, other opioid analgesics, other medicines, foods, dyes, or preservatives or trying to get breast-feeding What should I watch for while using this medicine? Tell your doctor or health day care home provider if your pain does not go away, if it gets worse, or if you have new or a different type of pain. You may develop tolerance to the medicine. Tolerance means that you will need a higher dose of the medicine for pain relief. Tolerance is normal and is expected if you take the medicine for a long time. Do not suddenly stop taking your medicine because you may develop a severe reaction. Your body becomes used to the medicine. This does NOT mean you are addicted. Addiction is a behavior related to getting and using a drug for a non-medical reason. If you have pain, you have a medical reason to take pain medicine. Your doctor will tell you how much medicine to take. If your doctor wants you to stop the medicine, the dose will be slowly lowered over time to avoid any side effects. You may get drowsy or dizzy when you first start taking the medicine or change doses. Do not drive, use machinery, or do anything that may be dangerous until you know how the medicine affects you. Stand or sit up slowly. There are different types of narcotic medicines (opiates) for pain. If you take more than one type at the same time, you may have more side effects. Give your health care provider a list of all medicines you use. Your doctor will tell you how much medicine to take. Do not take more medicine than directed. Call emergency for help if you have problems breathing. The medicine will cause constipation. Try to have a bowel movement at least every 2 to 3 days. If you do not have a bowel movement for 3 days, call your doctor or health day care home provider. Too much acetaminophen can be very dangerous. Do not take Tylenol (acetaminophen) or medicines that contain acetaminophen with this medicine. Many non-prescription medicines contain acetaminophen. Always read the labels carefully. Clotrimazole Topical solution What is this medicine? CLOTRIMAZOLE (kloe TRIM a zole) is an antifungal medicine. It is used to treat certain kinds of fungal or yeast infections of the skin. How should I use this medicine? This medicine is for external use only. Do not take by mouth. Follow the directions on the prescription label. Wash your hands before and after use. If treating a hand or nail infection, wash hands before use only. Apply a thin layer to the affected area and a small amount to the surrounding area. Rub in gently. Do not get this medicine in your eyes. If you do, rinse out with plenty of cool tap water. Use this medicine at regular intervals. Do not use more often than directed. Finish the full course prescribed by your doctor or health day care home provider even if you think you are better. Do not stop using except on your doctor's advice. Talk to your leather flesher regarding the use of this medicine in children. While this drug has been used in young children for selected conditions, precautions do apply. What side effects may I notice from receiving this medicine? Side effects that usually do not require medical attention (report to your doctor or health day care home provider if they continue or are bothersome): allergic reactions like skin rash, itching or hives, swelling of the face, lips, or tongue skin irritation, burning What may interact with this medicine? amphotericin b topical products that have nystatin What if I miss a dose? If you miss a dose, use it as soon as you can. If it is almost time for your next dose, use only that dose. Do not use double or extra doses. Where should I keep my medicine? Keep out of the reach of children. Store at room temperature between 2 to 30 degrees C (36 to 86 degrees F). Do not freeze. Throw away any unused medicine after the expiration date. What should I tell my health care provider before I take this medicine? They need to know if you have any of these conditions: an unusual or allergic reaction to clotrimazole, other antifungals or medicines, foods, dyes or preservatives or trying to get breast-feeding What should I watch for while using this medicine? Tell your doctor or health day care home provider if your symptoms do not start to improve after 7 days. Do not self-medicate for more than one week. If you are using this medicine for 'jock itch' be sure to dry the groin completely after bathing. Do not wear underwear that is tight-fitting or made from synthetic fibers like sophie or nylon. Wear loose-fitting, cotton underwear. If you are using this medicine for athlete's foot be sure to dry your feet carefully after bathing, especially between the toes. Do not wear socks made from wool or synthetic materials like sophie or nylon. Wear clean cotton socks and change them at least once a day, change them more if your feet sweat a lot. Also, try to wear sandals or shoes that are well-ventilated. You have been given the following additional information: Abdominal Pain, Unknown Cause, (Male) Tinea Cruris, General Diet, [place] (Adult) Hydrocodone Bitartrate, Acetaminophen Oral tablet Clotrimazole Topical solution Rest. Do not work for three days. (Electronically signed by Yonatan Lazo DO 06/26/2016 23:18)
--- NOTE | 2016-06-26 23:18 | ED MED RECONCILIATION SUMMARY ---
Patient: ANTHONY IBARRA Medication Reconciliation Report [facility] VisitID: [id number] [address] [place] [address] 75y, M Registration Date/Time: 06/26/2016 Weight: 112.9 kg Height/Length: 70 in. BMI: 35.7 ALLERGIES: No Known Drug Allergy The patient's Home Medications are listed below: CONTINUE TAKING THE FOLLOWING MEDICATIONS: Albuterol Sulfate HFA Inhalation ASA Oral 325 mg, daily The source(s) of the original Home Medication information: patient The following Medications were given to the patient in the Emergency Department: Zofran [IVP] IVP 4 mg, administered: 06/26/2016 6:39:00 PM IV NS IV Fluids bolus 0, then 250 mL/hr, administered: 06/26/2016 6:39:00 PM Dilaudid [IVP] IVP 0.5 mg, administered: 06/26/2016 6:47:00 PM Dilaudid [IVP] IVP 0.5 mg, administered: 06/26/2016 8:16:00 PM Zofran [IVP] IVP 4 mg, administered: 06/26/2016 8:16:00 PM The following Medications were prescribed to the patient: Take acetaminophen (Tylenol, Datril, etc.) and ibuprofen (Advil, Nuprin, etc.) according to label instructions. Available over the counter. -- Yonatan Lazo DO Hydrocodone/APAP 5mg / 325mg: take 1 orally every 8 hours as needed for pain. Dispense ten (10). No refill. -- Yonatan Lazo DO Clotrimazole 1% Cream (available over the counter): apply to affected area three times daily as needed for rash, until symptoms improve. Dispense sixty (60) grams. One refill. -- Yonatan Lazo DO
--- NOTE | 2016-06-26 23:18 | ED MED RECONCILIATION SUMMARY ---
Patient: ANTHONY IBARRA Medication Reconciliation Report [facility] VisitID: [id number] [address] [place] [address] 75y, M Registration Date/Time: 06/26/2016 Weight: 112.9 kg Height/Length: 70 in. BMI: 35.7 ALLERGIES: No Known Drug Allergy The patient's Home Medications are listed below: CONTINUE TAKING THE FOLLOWING MEDICATIONS: Albuterol Sulfate HFA Inhalation ASA Oral 325 mg, daily The source(s) of the original Home Medication information: patient The following Medications were given to the patient in the Emergency Department: Zofran [IVP] IVP 4 mg, administered: 06/26/2016 6:39:00 PM IV NS IV Fluids bolus 0, then 250 mL/hr, administered: 06/26/2016 6:39:00 PM Dilaudid [IVP] IVP 0.5 mg, administered: 06/26/2016 6:47:00 PM Dilaudid [IVP] IVP 0.5 mg, administered: 06/26/2016 8:16:00 PM Zofran [IVP] IVP 4 mg, administered: 06/26/2016 8:16:00 PM The following Medications were prescribed to the patient: Take acetaminophen (Tylenol, Datril, etc.) and ibuprofen (Advil, Nuprin, etc.) according to label instructions. Available over the counter. -- Yonatan Lazo DO Hydrocodone/APAP 5mg / 325mg: take 1 orally every 8 hours as needed for pain. Dispense ten (10). No refill. -- Yonatan Lazo DO Clotrimazole 1% Cream (available over the counter): apply to affected area three times daily as needed for rash, until symptoms improve. Dispense sixty (60) grams. One refill. -- Yonatan Lazo DO
--- NOTE | 2016-06-26 23:18 | ED DISCHARGE INSTRUCTIONS ---
Patient: ANTHONY IBARRA General Instructions [facility] VisitID: [id number] [address] [place] [address] 75y, M Registration Date/Time: 06/26/2016 Acute abdominal pain of unknown cause. Tinea cruris INSTRUCTIONS Rest. Do not work for three days. Drink plenty of fluids. Avoid alcohol. Avoid fatty, fried/greasy, lactose-containing (such as milk, cheese and ice cream), salty and spicy foods. No alcohol until released. Warnings: Further evaluation is necessary in order to recheck abnormal lab, obtain test results, conduct further tests and assess the possibility of serious illness. It is very important to follow up with a physician. GENERAL WARNINGS: Return or contact your physician immediately if your condition worsens or changes unexpectedly, if not improving as expected, or if other problems arise. Your Current Medications: CONTINUE TAKING THE FOLLOWING MEDICATIONS: Albuterol Sulfate HFA Inhalation. ASA Oral : 325 mg daily. Prescription Medications: Hydrocodone/APAP 5mg / 325mg: take 1 orally every 8 hours as needed for pain. Dispense ten (10). No refill. OTC Medications: Take acetaminophen (Tylenol, Datril, etc.) and ibuprofen (Advil, Nuprin, etc.) according to label instructions. Available over the counter. Clotrimazole 1% Cream (available over the counter): apply to affected area three times daily as needed for rash, until symptoms improve. Dispense sixty (60) grams. One refill. Follow-up with: [facility], , , [address], , [place], [id number] Follow up tomorrow. ADDITIONAL INFORMATION Abdominal Pain,Uncertain Cause [Male] Based on your visit today, the exact cause of your abdominalpain is not clear. Your exam and tests do not indicate a dangerous cause at this time. However, the signs of a serious problem may take more time to appear. Although your evaluation was reassuring today, sometimes early in the course of many conditions, exam and lab tests can appear normal. Therefore, it is important for you to watch for any new symptoms or worsening of your condition. Causes It may not be obvious what caused your symptoms. Pay attention to things that do seem to make your symptoms worse or better and discuss this with your doctor when you follow up. Diagnosis The evaluation of abdominal pain in the emergency department may onlyrequire an exam by the doctor or it may include blood, urine or imaging studies, depending on many factors. Sometimes exams and tests can identify a cause but in many cases, a clear cause is not found. Further testing at follow up visits may help to suggest a clear diagnosis. Home Care Rest as much as possible until your next exam. Try to avoid any medications (unless otherwise directed by your doctor), foods, activities, or other factors that you may have contributed to your symptoms. Try to eat foods that you know that you have tolerated well in the past. Certain diets may be recommended for some conditions that cause abdominal pain. However, since the cause of your symptoms may not be clear, discuss your diet more with your primary care provider or specialist for further recommendations. Eating several small meals per day as opposed to 2 or 3 larger meals may help. Monitor closely for anything that may make your symptoms worse or better. Pay close attention to symptoms below that may indicate worsening of your condition. Follow Up and Precautions See your doctoras instructed or sooneror if your symptoms are not improving.In some cases, you may need more testing. When to Seek Medical Attention Contact your doctor or see medical attention ifany of the following occur: Pain is becoming worse You are unable to take your medications due to excessive vomiting Swelling of the abdomen Fever of 100.4F (38C) or higher, or as directed by your health care provider Blood in vomit or bowel movements (dark red or black color) Jaundice (yellow color of eyes and skin) New onset of weakness, dizziness or fainting New onset of chest, arm, back, neck or jaw pain Tinea Cruris(General) Tinea crurisis a red, itchy rash caused by a fungal infection. It occurs in skin folds where it is warm and moist. This is often the groin area (jock itch) or under the breasts. It often starts as a small patch that grows larger. This infection is treated with skin creams or oral medication. Home Care: If you were prescribed a cream, it should be applied exactly as directed. Some antifungal creams are available without a prescription (Lotrimin, Tinactin). It may take a week before the fungus starts to go away and it can take about2 to3 weeks to completely clear. To prevent recurrence, it is important to continue the medicine until the rash is all gone. Wash the area at least once a day with soap and water. Pat dry and apply medicine. If the rash is in the groin, change underwear daily. If the rash is under your breast, wear a bra to prevent [id number] contact between the breast and the skin of the chest. Once the rash is gone, keep the area clean and dry to prevent reinfection. If recurrence is a problem, use a medicated antifungal powder daily (such as Zeasorb-AF, available [id number]). Follow Up With Your Doctor As Advised By Our Staff If The Rash Is Not Starting To Improve After10 Days Of Treatment Or If The Rash Continues To Spread. Get Prompt Medical Attention If Any Of The Following Occur: Increasing pain in the area of the rash Redness that spreads around the rash Fluid draining from the rash Fever of 100.4F (38C) or higher, or as directed by your healthcare provider Rock Diet A bland diet is used for patients with an upset stomach. It consists of foods that are mild and easy to digest. It is better to eat small frequent meals rather than three large meals a day. BEVERAGES OK: Fruit juices, non-caffeinated teas and coffee, non-carbonated steiner AVOID: Carbonated beverage, caffeinated tea and coffee, all alcoholic beverages BREAD OK: Refined white, wheat or rye bread, ruben or soda crackers, [place] toast, plain rolls, bagels AVOID: Whole-grain bread CEREAL OK: Refined cereals: cooked or ready to eat AVOID: Whole grain cereals and granola, or those containing bran, seeds or nuts DESSERTS OK: Peanut butter and all others except those to "avoid" AVOID: Chocolate, cocoa, coconut, popcorn, nuts, seeds, jam, marmalade FRUITS OK: Canned, cooked, frozen or fresh fruits without seeds or tough skin AVOID: Olives, skin and seeds of fruit MEATS OK: All fresh or preserved meat, fish and fowl AVOID: Any that are prepared with those spices to "avoid" CHEESE & EGGS OK: Eggs, cottage cheese, cream cheese, other cheeses AVOID: All cheeses made with those spices to "avoid" POTATOES & PASTA OK: Potato, rice, macaroni, noodles, spaghetti AVOID: None SOUPS OK: All soups without heavy seasoning AVOID: Soups made with those spices to "avoid" VEGETABLES OK: Canned, cooked, fresh or frozen mildly flavored vegetables without seeds, skins or coarse fiber AVOID: Vegetables prepared with those spices to "avoid"; skin and seeds of vegetables and those with coarse fiber SPICES OK: Salt, lemon and quinault juice, vinegar, all extracts, tamia, cinnamon, thyme, mace, allspice, paprika AVOID: [place] powder, cloves, pepper, seed spices, garlic, gravy pickles, highly seasoned salad dressings Hydrocodone Bitartrate, Acetaminophen Oral tablet What is this medicine? ACETAMINOPHEN; HYDROCODONE (a set a JAS nancy fen; jaqueline droe KOE done) is a pain reliever. It is used to treat mild to moderate pain. How should I use this medicine? Take this medicine by mouth. Swallow it with a full glass of water. Follow the directions on the prescription label. If the medicine upsets your stomach, take the medicine with food or milk. Do not take more than you are told to take. Talk to your chemistry department chair regarding the use of this medicine in children. This medicine is not approved for use in children. What side effects may I notice from receiving this medicine? Side effects that you should report to your doctor or health career center director as soon as possible: allergic reactions like skin rash, itching or hives, swelling of the face, lips, or tongue breathing problems confusion feeling faint or lightheaded, falls stomach pain yellowing of the eyes or skin Side effects that usually do not require medical attention (report to your doctor or health career center director if they continue or are bothersome): nausea, vomiting stomach upset What may interact with this medicine? alcohol antihistamines isoniazid medicines for depression, anxiety, or psychotic disturbances medicines for sleep muscle relaxants naltrexone narcotic medicines (opiates) for pain phenobarbital ritonavir tramadol What if I miss a dose? If you miss a dose, take it as soon as you can. If it is almost time for your next dose, take only that dose. Do not take double or extra doses. Where should I keep my medicine? Keep out of the reach of children. This medicine can be abused. Keep your medicine in a safe place to protect it from theft. Do not share this medicine with anyone. Selling or giving away this medicine is dangerous and against the law. Store at room temperature between 15 and 30 degrees C (59 and 86 degrees F). Protect from light. Keep container tightly closed. Throw away any unused medicine after the expiration date. Discard unused medicine and used packaging carefully. Pets and children can be harmed if they find used or lost packages. What should I tell my health care provider before I take this medicine? They need to know if you have any of these conditions: brain tumor Crohn's disease, inflammatory bowel disease, or ulcerative colitis drink more than 3 alcohol-containing drinks per day drug abuse or addiction head injury heart or circulation problems kidney disease or problems going to the bathroom liver disease lung disease, asthma, or breathing problems an unusual or allergic reaction to acetaminophen, hydrocodone, other opioid analgesics, other medicines, foods, dyes, or preservatives or trying to get breast-feeding What should I watch for while using this medicine? Tell your doctor or health career center director if your pain does not go away, if it gets worse, or if you have new or a different type of pain. You may develop tolerance to the medicine. Tolerance means that you will need a higher dose of the medicine for pain relief. Tolerance is normal and is expected if you take the medicine for a long time. Do not suddenly stop taking your medicine because you may develop a severe reaction. Your body becomes used to the medicine. This does NOT mean you are addicted. Addiction is a behavior related to getting and using a drug for a non-medical reason. If you have pain, you have a medical reason to take pain medicine. Your doctor will tell you how much medicine to take. If your doctor wants you to stop the medicine, the dose will be slowly lowered over time to avoid any side effects. You may get drowsy or dizzy when you first start taking the medicine or change doses. Do not drive, use machinery, or do anything that may be dangerous until you know how the medicine affects you. Stand or sit up slowly. There are different types of narcotic medicines (opiates) for pain. If you take more than one type at the same time, you may have more side effects. Give your health care provider a list of all medicines you use. Your doctor will tell you how much medicine to take. Do not take more medicine than directed. Call emergency for help if you have problems breathing. The medicine will cause constipation. Try to have a bowel movement at least every 2 to 3 days. If you do not have a bowel movement for 3 days, call your doctor or health career center director. Too much acetaminophen can be very dangerous. Do not take Tylenol (acetaminophen) or medicines that contain acetaminophen with this medicine. Many non-prescription medicines contain acetaminophen. Always read the labels carefully. Clotrimazole Topical solution What is this medicine? CLOTRIMAZOLE (kloe TRIM a zole) is an antifungal medicine. It is used to treat certain kinds of fungal or yeast infections of the skin. How should I use this medicine? This medicine is for external use only. Do not take by mouth. Follow the directions on the prescription label. Wash your hands before and after use. If treating a hand or nail infection, wash hands before use only. Apply a thin layer to the affected area and a small amount to the surrounding area. Rub in gently. Do not get this medicine in your eyes. If you do, rinse out with plenty of cool tap water. Use this medicine at regular intervals. Do not use more often than directed. Finish the full course prescribed by your doctor or health career center director even if you think you are better. Do not stop using except on your doctor's advice. Talk to your chemistry department chair regarding the use of this medicine in children. While this drug has been used in young children for selected conditions, precautions do apply. What side effects may I notice from receiving this medicine? Side effects that usually do not require medical attention (report to your doctor or health career center director if they continue or are bothersome): allergic reactions like skin rash, itching or hives, swelling of the face, lips, or tongue skin irritation, burning What may interact with this medicine? amphotericin b topical products that have nystatin What if I miss a dose? If you miss a dose, use it as soon as you can. If it is almost time for your next dose, use only that dose. Do not use double or extra doses. Where should I keep my medicine? Keep out of the reach of children. Store at room temperature between 2 to 30 degrees C (36 to 86 degrees F). Do not freeze. Throw away any unused medicine after the expiration date. What should I tell my health care provider before I take this medicine? They need to know if you have any of these conditions: an unusual or allergic reaction to clotrimazole, other antifungals or medicines, foods, dyes or preservatives or trying to get breast-feeding What should I watch for while using this medicine? Tell your doctor or health career center director if your symptoms do not start to improve after 7 days. Do not self-medicate for more than one week. If you are using this medicine for 'jock itch' be sure to dry the groin completely after bathing. Do not wear underwear that is tight-fitting or made from synthetic fibers like sophie or nylon. Wear loose-fitting, cotton underwear. If you are using this medicine for athlete's foot be sure to dry your feet carefully after bathing, especially between the toes. Do not wear socks made from wool or synthetic materials like sophie or nylon. Wear clean cotton socks and change them at least once a day, change them more if your feet sweat a lot. Also, try to wear sandals or shoes that are well-ventilated. You have been given the following additional information: Abdominal Pain, Unknown Cause, (Male) Tinea Cruris, General Diet, Rock (Adult) Hydrocodone Bitartrate, Acetaminophen Oral tablet Clotrimazole Topical solution Rest. Do not work for three days. (Electronically signed by Yonatan Lazo DO 06/26/2016 23:18)
== END 2016-06-26 21:03 | disposition home or self-care (01) ==
LOC: ED SRH 17:52
DX: R10.2 Pelvic and perineal pain (principal); B35.6 Tinea cruris; J44.9 Chronic obstructive pulmonary disease, unspecified; I25.10 Atherosclerotic heart disease of native coronary artery without angina pectoris; I10 Essential (primary) hypertension; I25.2 Old myocardial infarction; Z79.51 Long term (current) use of inhaled steroids; Z79.82 Long term (current) use of aspirin
CPT/HCPCS: 90004; 90100; 90616; 91320; 92235; 92530; 92610; 92720; 92760; 92761; 92762; 92763; 92764; 92765; 92766; 92767; 95059